=== PATIENT | female | born 1995 | race Caucasian/White ===

== ENCOUNTER 2019-10-22 21:04 | Emergency (ER) | payer OTHER ==
[~2019-10-22] VITALS: Ht 157.5 cm; Wt 98.9 kg
[2019-10-22 21:20] VITALS: BP 104/74
--- NOTE | 2019-10-22 21:20 | NUR ---
TO BED # 03 AMBULATORY
--- NOTE | 2019-10-22 21:22 | NUR ---
24 Y/O FEMALE C/O UTI SX X WEDNESDAY. PT STATES SHE WENT TO A CLINIC ON THRUSDAY AND GOT ANTIBIOTICS BACTRIUM. PT STATES HER UTI HAS GOT WORSE AND THE ANTIBIOTIC ISNT WORKING. PT HAS BILAT LOWER BACK PAIN. DENIES ANY BURNING SENSATION WHEN URINATING AND NO BLOOD IN URINE. VSS. PT ALSO STATES SHE HAS FEVER, CHILLS, MONET, N. RATE MONET 7/10 AND DESCRIBES THE SENSATION THORBBING. A &O X4. NO DISTRESS NOTED. BOYFRIEND DALE IS AT BEDSIDE. NKA. NO PMH.
--- NOTE | 2019-10-22 21:43 | NUR ---
ERMD AT BEDSIDE TO EVAL PT.
[2019-10-22] MEDS ORDERED: KETOROLAC 60 MG/2 ML VIAL IM ONE (21:45)
[2019-10-22 22:07] VITALS: BP 104/74
--- NOTE | 2019-10-22 22:07 | NUR ---
Patient discharged with v/s stable. Written and verbal after care instructions given and explained. Patient alert, oriented and verbalized understanding of instructions. Ambulatory with steady gait. All questions addressed prior to discharge. ID band removed. Patient advised to follow up with PMD. Rx of CIPRO AND ZOFRAN given. Patient educated on indication of medication including possible reaction and side effects. Opportunity to ask questions provided and answered.
== END 2019-10-22 22:07 | disposition home or self-care (01) ==
LOC: MED 21:04
DX: N39.0 Urinary tract infection, site not specified (principal)
CPT/HCPCS: 81002; 81025; 96372; 99283; J1885